=== PATIENT | male | born 1985 | race Two or more races ===

== ENCOUNTER 2019-04-06 13:06 | Outpatient (CLI) | payer OTHER ==
--- NOTE | 2019-04-06 13:39 | ULT ---
EXAM: Testicular/scrotal ultrasound HISTORY: Infertility COMPARISON: None TECHNIQUE: Multiplanar grayscale and color Doppler images were obtained in a testicular/scrotal ultra sound. Spectral analysis of the Doppler waveforms of the testicles were performed. FINDINGS: Right testicle: Normal in echogenicity. No focal mass. Normal internal flow. Left testicle: Normal in echogenicity. No focal mass. Normal internal flow. Right epididymis. No epididymal cyst. Normal internal flow. Left epididymis. No epididymal cyst. Normal internal flow. No hydrocele is present. No varicocele is present. IMPRESSION: No significant scrotal/testicular abnormality
== END 2019-04-06 13:07 | disposition home or self-care (01) ==
LOC: BICULT 13:06
PROVIDERS: ATTEND Urology
DX: Z31.69 Encounter for other general counseling and advice on procreation (principal); R35.0 Frequency of micturition; Z87.438 Personal history of other diseases of male genital organs
CPT/HCPCS: 76870; 93976